=== PATIENT | male | born 1940 | race Caucasian/White ===

== ENCOUNTER 2016-04-16 14:31 | Emergency (ER) | payer MEDICARE, BC ==
[2016-04-16 15:07] VITALS: TEMP 98.9
[2016-04-16] MEDS ORDERED: ALBUTEROL NEB SOL 2.5MG/3ML 1 VIAL SOL NEB ONE (15:18)
[2016-04-16] MEDS ORDERED: ALBUTEROL NEB SOL 2.5MG/3ML 1 VIAL SOL ONE (15:21)
[2016-04-16 15:59] VITALS: PULSE 82; RESP 22; O2SAT 94
[2016-04-16 16:16] VITALS: BP 125/64
== END 2016-04-16 16:09 | disposition home or self-care (01) | DRG 192 ==
LOC: ED 14:31
DX: J44.1 Chronic obstructive pulmonary disease with (acute) exacerbation (principal); J20.9 Acute bronchitis, unspecified; J44.0 Chronic obstructive pulmonary disease with (acute) lower respiratory infection
CPT/HCPCS: 99282; 99284; J7603